=== PATIENT | male | born 1955 | race Two or more races ===

== ENCOUNTER 2018-12-26 07:19 | Day surgery (SDC) | payer OTHER ==
[~2018-12-26 07:19] MED LIST: LIDOCAINE 2% (SDV) 5 ML INJ; PROPOFOL 200 MG INJ
[2018-12-26] MEDS ORDERED: ONDANSETRON 4 MG INJ IV (09:00)
[2018-12-26] MEDS ORDERED: LABETALOL HCL 20MG INJ IV (09:00)
[2018-12-26] MEDS ORDERED: EPHEDrine SULFATE 50 MG/5 ML SYG IV (09:00)
[2018-12-26] MEDS ORDERED: hydrALAzine 20 MG INJ IV (09:00)
[2018-12-26] MEDS ORDERED: FENTAnyl 50 MCG/ML VIAL IV (09:00)
[2018-12-26] MEDS ORDERED: PROPOFOL 60 ML (09:28)
== END 2018-12-26 12:13 | disposition home or self-care (01) ==
LOC: GIL 07:19
DX: Z12.11 Encounter for screening for malignant neoplasm of colon (principal); K57.30 Diverticulosis of large intestine without perforation or abscess without bleeding; N40.0 Benign prostatic hyperplasia without lower urinary tract symptoms; R62.50 Unspecified lack of expected normal physiological development in childhood
CPT/HCPCS: 45378